=== PATIENT | female | born 1980 | race African-American/Black ===

== ENCOUNTER 2019-08-30 18:54 | Inpatient (IN) | payer OTHER ==
[~2019-08-30] VITALS: Ht 160 cm; Wt 110.3 kg
[2019-08-30] MEDS ORDERED: IPRATROPIUM BROMIDE (0.02%) 0.5MG/2.5ML NEB HHN STA (19:07)
[2019-08-30] MEDS ORDERED: ALBUTEROL (0.083%) 2.5MG/3ML NEB HHN STA (19:07)
[2019-08-30] MEDS ORDERED: CLONIDINE 0.2MG TABLET PO ONE (20:00)
[2019-08-30] MEDS ORDERED: SODIUM CHLORIDE 0.9% 500 ML IV ONE (20:00)
[2019-08-30 20:11] LABS: BASOPHILS % 0.5 % (0.0-2.0); EOSINOPHILS % 3.3 % (0.0-5.0); HEMATOCRIT. 34.6 % (36.0-48.0); HEMOGLOBIN. 10.4 g/dL (12.0-16.0); LYMPHOCYTES % 19.6 % (20.0-50.0); MEAN CORPUSCULAR HEMOGLOBIN 18.7 pg (28.0-32.0); MEAN CORPUSCULAR VOLUME 62.6 fL (81.0-99.0); MONOCYTES % 10.2 % (2.0-8.0); NEUTROPHILS % 66.4 % (40.0-76.0); PLATELET 339 x1000/uL (130-400); RED BLOOD CELL COUNT 5.53 mill/uL (4.2-5.4); RED CELL DISTRIBUTION WIDTH 18.7 % (11.6-14.6)
[2019-08-30 20:15] LABS: CHLORIDE 112 mEq/L (98-107)
[2019-08-30 20:48] LABS: PLATELET ESTIMATE NORMAL
[2019-08-30] MEDS ORDERED: HYDRALAZINE 20MG/ML VIAL IV ONE (21:00)
[2019-08-30 21:29] LABS: HCG SCREEN NEGATIVE
[2019-08-30 21:46] LABS: BG BASE EXCESS -5.7 mmol/L (-2.0-2.0); BG BILEVEL POS AIRWAY PRESSURE 15/5; BG DEOXYHEMOGLOBIN 0.7 % (0.0-5.0); BG FRACTION INSPIRED OXYGEN 40; BG HCO3 ACT 17.8 mmol/L (22.0-26.0); BG METHEMOGLOBIN 0.3 % (0.0-1.5); BG OXYGEN SATURATION 99.3 % (92.0-98.5); BG PCO2 28.5 mmHg (35.0-45.0); BG PH 7.414 (7.350-7.450); BG SAMPLE SITE RIGHT RADIAL; BG TOTAL HEMOGLOBIN 10.6 g/dL (12.0-18.0); BG VENT MODE MASK - BIPAP
[2019-08-30 23:00] VITALS: BP 135/97
[2019-08-30] MEDS ORDERED: ACETAMINOPHEN 325MG TABLET PO PRN (23:45)
[2019-08-30] MEDS ORDERED: ALBU90AE IH (23:58)
[2019-08-31] VITALS (12 sets, daily range): BP systolic 111–149; BP diastolic 72–94
[2019-08-31] MEDS: METHYLPREDNISOLONE SOD SUCC 40 MG/ML VIAL IV SCH ×4 (00:50→17:22)
[2019-08-31] MEDS: DEXT 5%/0.45% NACL 1000ML 1,000 ML IV SCH ×3 (00:51→17:22)
[2019-08-31] MEDS: CLONIDINE 0.1MG TABLET PO PRN (00:51)
[2019-08-31] MEDS: IPRATROPIUM/ALBUTEROL 0.5-3(2.5)MG/3ML NEB HHN SCH ×6 (01:37→21:44)
[2019-08-31] MEDS: LEVOFLOXACIN 500MG PREMIX 100 ML IV SCH (02:23)
[2019-08-31 06:54] LABS: CHLORIDE 111 mEq/L (98-107)
[2019-08-31 06:55] LABS: HEMOGLOBIN. 9.8 g/dL (12.0-16.0); MEAN CORPUSCULAR VOLUME 61.9 fL (81.0-99.0); MEAN PLATELET VOLUME 9.3 fl (7.4-10.4); PLATELET 318 x1000/uL (130-400); RED BLOOD CELL COUNT 5.17 mill/uL (4.2-5.4); RED CELL DISTRIBUTION WIDTH 18.7 % (11.6-14.6)
[2019-08-31] MEDS ORDERED: PANTOPRAZOLE SODIUM 40 MG/VIAL IV SCH (09:00)
[2019-08-31] MEDS ORDERED: ENOXAPARIN 40MG/0.4ML SYR SUBCUT SCH (09:00)
[2019-08-31] MEDS: ENOXAPARIN 30MG/0.3ML SYR SUBCUT SCH ×2 (09:41→20:47)
[2019-08-31 10:53] LABS: PLATELET ESTIMATE NORMAL
[2019-08-31 12:13] LABS: BG BASE EXCESS -4.1 mmol/L (-2.0-2.0); BG CARBOXYHEMOGLOBIN 0.3 % (0.5-1.5); BG DEOXYHEMOGLOBIN 4.6 % (0.0-5.0); BG FRACTION INSPIRED OXYGEN 21; BG HCO3 ACT 19.3 mmol/L (22.0-26.0); BG METHEMOGLOBIN 0.3 % (0.0-1.5); BG OXYGEN SATURATION 95.4 % (92.0-98.5); BG OXYHEMOGLOBIN 94.8 % (94.0-97.0); BG PCO2 29.9 mmHg (35.0-45.0); BG PH 7.427 (7.350-7.450); BG PO2 71.8 mmHg (75.0-100.0); BG SAMPLE SITE LEFT BRACHIAL; BG VENT MODE ROOM AIR
[2019-08-31 12:21] LABS: PROTHROMBIN TIME 10.3 sec (9.6-11.0)
[2019-08-31] MEDS: LORATADINE 10MG TABLET PO SCH (12:24)
[2019-08-31] MEDS ORDERED: DIPHENHYDRAMINE 50MG/ML VIAL IV PRN (15:15)
[2019-08-31] MEDS ORDERED: LORAZEPAM 2MG/ML CPJ IV PRN (15:15)
[2019-08-31] MEDS ORDERED: LACTULOSE 20G/30ML UDC PO PRN (15:15)
[2019-08-31] MEDS ORDERED: HYDROCODONE/ACETAMINOPHEN 5/325MG TABLET PO PRN (15:15)
[2019-08-31] MEDS ORDERED: ONDANSETRON HCL 4MG/2ML INJ IV PRN (15:15)
[2019-08-31] MEDS ORDERED: MONTELUKAST SODIUM 10MG TABLET PO SCH (17:00)
[2019-08-31] MEDS ORDERED: FAMOTIDINE 20MG/2ML VIAL IV SCH (21:00)
[2019-08-31 21:22] LABS: CLARITY URINE CLEAR (CLEAR); COLOR URINE YELLOW (YELLOW); KETONES URINE NEGATIVE (NEGATIVE); LEUKOCYTE ESTERASE URINE NEGATIVE (NEGATIVE); NITRITE URINE NEGATIVE (NEGATIVE); OCCULT BLOOD URINE NEGATIVE (NEGATIVE); PH URINE 5.5 (4.5-8.0); PROTEIN URINE NEGATIVE (NEGATIVE); SPECIFIC GRAVITY URINE 1.005 (1.005-1.030); UROBILINOGEN URINE 0.2 E.U./dL (0.2-1.0)
[2019-08-31 21:43] LABS: METHADONE URINE SCREEN NEGATIVE (NEGATIVE); OPIATES URINE SCREEN NEGATIVE (NEGATIVE)
[2019-08-31 21:44] LABS: *AMPHETAMINES SCREEN URINE NEGATIVE (NEGATIVE); *BARBITURATES SCREEN URINE NEGATIVE (NEGATIVE); *BENZODIAZEPINES SCREEN URINE NEGATIVE (NEGATIVE); *COCAINE SCREEN URINE NEGATIVE (NEGATIVE); CANNABINOID URINE SCREEN NEGATIVE (NEGATIVE); PHENCYCLIDINE URINE SCREEN NEGATIVE (NEGATIVE)
[2019-09-01] VITALS (9 sets, daily range): BP systolic 142–160; BP diastolic 86–98
[2019-09-01] MEDS: METHYLPREDNISOLONE SOD SUCC 40 MG/ML VIAL IV SCH (00:03)
[2019-09-01] MEDS: DEXT 5%/0.45% NACL 1000ML 1,000 ML IV SCH (00:03)
[2019-09-01] MEDS: IPRATROPIUM/ALBUTEROL 0.5-3(2.5)MG/3ML NEB HHN SCH ×4 (01:37→12:53)
[2019-09-01] MEDS: LEVOFLOXACIN 500MG PREMIX 100 ML IV SCH (02:46)
[2019-09-01 08:03] LABS: BASOPHILS % 0.1 % (0.0-2.0); HEMATOCRIT. 33.7 % (36.0-48.0); HEMOGLOBIN. 10.2 g/dL (12.0-16.0); LYMPHOCYTES % 8.5 % (20.0-50.0); MEAN CORPUSCULAR HEMOGLOBIN 18.9 pg (28.0-32.0); MEAN PLATELET VOLUME 10.1 fl (7.4-10.4); MONOCYTES % 4.2 % (2.0-8.0); NEUTROPHILS % 87.2 % (40.0-76.0); PLATELET 387 x1000/uL (130-400); RED BLOOD CELL COUNT 5.43 mill/uL (4.2-5.4); RED CELL DISTRIBUTION WIDTH 19.4 % (11.6-14.6)
[2019-09-01 08:26] LABS: CHLORIDE 108 mEq/L (98-107)
[2019-09-01] MEDS ORDERED: DILTIAZEM HCL 30MG TABLET PO NR (08:45)
[2019-09-01] MEDS ORDERED: PREDNISONE 20MG TABLET PO SCH (09:00)
[2019-09-01] MEDS ORDERED: FAMOTIDINE 20MG TABLET PO SCH (09:00)
[2019-09-01] MEDS: LORATADINE 10MG TABLET PO SCH (09:00)
[2019-09-01] MEDS: ENOXAPARIN 30MG/0.3ML SYR SUBCUT SCH (09:03)
[2019-09-01] MEDS: CLONIDINE 0.1MG TABLET PO PRN (12:25)
[2019-09-01] MEDS ORDERED: DILTIAZEM HCL 5MG/ML 5ML VIAL IV NR (13:30)
[2019-09-01] MEDS ORDERED: DILTIAZEM HCL 30MG TABLET PO SCH (14:00)
[2019-09-02] MEDS ORDERED: LEVOFLOXACIN 500MG TABLET PO SCH (11:00)
== END 2019-09-01 14:22 | disposition home or self-care (01) | DRG 133 ==
LOC: ER 19:45 → 3WST 20:54 → EDBEDREQTM 20:57 → EDBEDREQ 20:57 → ENRESERV 21:43
PROVIDERS: ADMIT Internal Medicine; ATTEND Internal Medicine
PROC: 5A09357 Assistance with Respiratory Ventilation, Less than 24 Consecutive Hours, Continuous Positive Airway Pressure (ICD-10-PCS; principal; 2019-08-30)
DX: J96.00 Acute respiratory failure, unspecified whether with hypoxia or hypercapnia (principal); J45.901 Unspecified asthma with (acute) exacerbation; E86.0 Dehydration; I10 Essential (primary) hypertension; E66.9 Obesity, unspecified; D64.9 Anemia, unspecified; R73.9 Hyperglycemia, unspecified; Z90.5 Acquired absence of kidney; Z87.442 Personal history of urinary calculi; Z79.899 Other long term (current) drug therapy; Z68.41 Body mass index [BMI] 40.0-44.9, adult; J06.9 Acute upper respiratory infection, unspecified
CPT/HCPCS: 36415; 36600; 71045; 76770; 80048; 80053; 80305; 81003; 82375; 82805; 83036; 83880; 84436; 84443; 84484; 84703; 85025; 87070; 87804; 93005; 93306; 93970; 96360; 96361; 99285; J0360; J1650; J1956; J2920; J3490; J7040; J7512; J7611; J7620

== ENCOUNTER 2022-10-20 01:55 | Emergency (ER) | payer OTHER ==
[~2022-10-20] VITALS: Ht 175.3 cm; Wt 125.0 kg
[~2022-10-20 01:55] MED LIST: ALBU90AE IH
[2022-10-20] MEDS ORDERED: MAGNESIUM 2 G PREMIX 50 ML IV STA (02:43)
[2022-10-20] MEDS ORDERED: IPRATROPIUM BROMIDE (0.02%) 0.5MG/2.5ML NEB HHN STA (02:43)
[2022-10-20] MEDS ORDERED: ALBUTEROL (0.083%) 2.5MG/3ML NEB HHN STA (02:43)
[2022-10-20] MEDS ORDERED: METHYLPREDNISOLONE SOD SUCC 125 MG/2 ML VIAL IV STA (02:43)
[2022-10-20] MEDS ORDERED: ALBU6.7H3 INH (06:00)
[2022-10-20] MEDS ORDERED: PRED10TA MT (06:00)
[2022-10-20] MEDS ORDERED: ALBU05 NEB (06:00)
[2022-10-20 07:00] VITALS: BP 147/75
== END 2022-10-20 07:07 | disposition home or self-care (01) ==
LOC: ER 01:55
DX: J45.901 Unspecified asthma with (acute) exacerbation (principal); R03.0 Elevated blood-pressure reading, without diagnosis of hypertension; Z79.51 Long term (current) use of inhaled steroids
CPT/HCPCS: 71045; 94644; 96365; 96366; 96375; 99285; J2930; J3475; Z7610

== ENCOUNTER 2022-11-24 22:04 | Inpatient (IN) | payer OTHER ==
[~2022-11-24] VITALS: Ht 160 cm; Wt 109.8 kg
[~2022-11-24 22:04] MED LIST changes: +ALBU05 NEB; +ALBU6.7H3 INH; +PRED10TA MT
[2022-11-24] MEDS ORDERED: IPRATROPIUM/ALBUTEROL 0.5-3(2.5)MG/3ML NEB HHN ONE (22:45)
[2022-11-24] MEDS ORDERED: DEXAMETHASONE 10 MG/ML VIAL IV ONE (22:45)
[2022-11-24 23:54] LABS: BASOPHILS % 0.5 % (0.0-2.0); HEMATOCRIT. 35.5 % (36.0-48.0); HEMOGLOBIN. 10.5 g/dL (12.0-16.0); LYMPHOCYTES % 12.6 % (20.0-50.0); MEAN CORPUSCULAR HEMOGLOBIN 17.9 pg (28.0-32.0); MEAN CORPUSCULAR VOLUME 60.9 fL (81.0-99.0); MEAN PLATELET VOLUME 8.9 fl (7.4-10.4); MONOCYTES % 5.2 % (2.0-8.0); NEUTROPHILS % 74.7 % (40.0-76.0); PLATELET 372 x1000/uL (130-400); RED BLOOD CELL COUNT 5.84 mill/uL (4.2-5.4); RED CELL DISTRIBUTION WIDTH 17.7 % (11.6-14.6)
[2022-11-25 00:31] LABS: BG BASE EXCESS -3.5 mmol/L (-2.0-2.0); BG CARBOXYHEMOGLOBIN 0.3 % (0.5-1.5); BG DEOXYHEMOGLOBIN 0.4 % (0.0-5.0); BG FRACTION INSPIRED OXYGEN 50; BG HCO3 ACT 21.9 mmol/L (22.0-26.0); BG METHEMOGLOBIN 0.4 % (0.0-1.5); BG OXYGEN SATURATION 99.6 % (92.0-98.5); BG OXYHEMOGLOBIN 98.9 % (94.0-97.0); BG PCO2 40.5 mmHg (35.0-45.0); BG PO2 266.1 mmHg (75.0-100.0); BG SAMPLE SITE RIGHT RADIAL; BG TOTAL HEMOGLOBIN 11.7 g/dL (12.0-18.0); BG VENT MODE MASK - BIPAP
[2022-11-25 00:35] LABS: CHLORIDE 109 mEq/L (98-107)
[2022-11-25] MEDS ORDERED: IPRATROPIUM/ALBUTEROL 0.5-3(2.5)MG/3ML NEB HHN PRN (01:15)
[2022-11-25] MEDS ORDERED: ONDANSETRON HCL 4MG/2ML INJ IV PRN (01:15)
[2022-11-25] MEDS ORDERED: ACETAMINOPHEN 325MG TABLET PO PRN ×2 (01:15)
[2022-11-25] MEDS ORDERED: IPRATROPIUM/ALBUTEROL 0.5-3(2.5)MG/3ML NEB HHN SCH (01:15)
[2022-11-25] MEDS ORDERED: GUAIFENESIN 200MG/10ML SUGAR FREE UDC PO PRN (01:15)
[2022-11-25] MEDS ORDERED: MAGNESIUM/ALUMINUM HYDROXIDE/SIMETHICONE 30ML UDC PO PRN (01:15)
[2022-11-25] MEDS ORDERED: CLONIDINE 0.1MG TABLET PO PRN (01:15)
[2022-11-25] MEDS ORDERED: DIPHENHYDRAMINE 50MG/ML VIAL IV PRN (01:15)
[2022-11-25] MEDS ORDERED: LORAZEPAM 0.5MG TABLET PO PRN (01:15)
[2022-11-25] MEDS ORDERED: ZOLPIDEM TARTRATE 5MG TABLET PO PRN (01:15)
[2022-11-25] MEDS ORDERED: IPRATROPIUM BROMIDE (0.02%) 0.5MG/2.5ML NEB HHN PRN (01:45)
[2022-11-25] MEDS ORDERED: ALBUTEROL (0.083%) 2.5MG/3ML NEB HHN PRN (01:45)
[2022-11-25] MEDS: ALBUTEROL (0.083%) 2.5MG/3ML NEB HHN SCH ×4 (04:22→21:10)
[2022-11-25] MEDS: IPRATROPIUM BROMIDE (0.02%) 0.5MG/2.5ML NEB HHN SCH ×4 (04:22→21:10)
[2022-11-25 05:29] LABS: PLATELET ESTIMATE NORMAL
[2022-11-25] MEDS: SODIUM CHLORIDE 0.9% INJ 3ML FLUSH IVF SCH ×3 (06:20→20:56)
[2022-11-25 09:00] VITALS: BP 150/81
[2022-11-25] MEDS ORDERED: ENOXAPARIN 40MG/0.4ML SYR SUBCUT SCH (09:00)
[2022-11-25] MEDS: OMEPRAZOLE 20MG CAPSULE EXTENDED RELEASE PO SCH ×2 (09:41→20:56)
[2022-11-25] MEDS: METHYLPREDNISOLONE SOD SUCC 125 MG/2 ML VIAL IV SCH ×3 (09:44→20:56)
[2022-11-25 12:00] VITALS: BP 161/93
[2022-11-25 13:35] VITALS: BP 161/93
[2022-11-25] MEDS ORDERED: FLUT1DIS3 INH (14:46)
[2022-11-25 16:00] VITALS: BP 146/81
[2022-11-25 20:00] VITALS: BP 133/87
[2022-11-25] MEDS: ENOXAPARIN 30MG/0.3ML SYR SUBCUT SCH (20:56)
[2022-11-26] VITALS: BP 114/66
[2022-11-26] MEDS: IPRATROPIUM BROMIDE (0.02%) 0.5MG/2.5ML NEB HHN SCH ×2 (03:05→08:56)
[2022-11-26] MEDS: ALBUTEROL (0.083%) 2.5MG/3ML NEB HHN SCH ×3 (03:05→13:45)
[2022-11-26 04:00] VITALS: BP 145/84
[2022-11-26] MEDS: SODIUM CHLORIDE 0.9% INJ 3ML FLUSH IVF SCH ×2 (05:44→14:39)
[2022-11-26] MEDS: METHYLPREDNISOLONE SOD SUCC 125 MG/2 ML VIAL IV SCH ×2 (05:44→14:39)
[2022-11-26] MEDS: OMEPRAZOLE 20MG CAPSULE EXTENDED RELEASE PO SCH (05:44)
[2022-11-26 08:00] VITALS: BP 132/78
[2022-11-26] MEDS: ENOXAPARIN 30MG/0.3ML SYR SUBCUT SCH (09:29)
[2022-11-26] MEDS ORDERED: LEVOFLOXACIN 250MG TABLET PO SCH (11:00)
[2022-11-26 12:00] VITALS: BP 127/64
[2022-11-26 16:00] VITALS: BP 121/71
[2022-11-26 16:10] LABS: BASOPHILS % 0.1 % (0.0-2.0); HEMATOCRIT. 34.7 % (36.0-48.0); HEMOGLOBIN. 10.4 g/dL (12.0-16.0); LYMPHOCYTES % 6.2 % (20.0-50.0); MEAN CORPUSCULAR HEMOGLOBIN 18.5 pg (28.0-32.0); MEAN CORPUSCULAR VOLUME 61.6 fL (81.0-99.0); MEAN PLATELET VOLUME 9.2 fl (7.4-10.4); MONOCYTES % 5.7 % (2.0-8.0); PLATELET 451 x1000/uL (130-400); RED BLOOD CELL COUNT 5.64 mill/uL (4.2-5.4); RED CELL DISTRIBUTION WIDTH 17.8 % (11.6-14.6)
[2022-11-26 16:25] LABS: CHLORIDE 109 mEq/L (98-107)
[2022-11-26 19:28] VITALS: BP 121/71
== END 2022-11-26 19:57 | disposition home or self-care (01) | DRG 133 ==
LOC: ER 22:04 → MICUSO 11-25 00:01 → EDBEDREQSVC 11-25 03:44 → 7WST 11-25 09:52
PROVIDERS: ADMIT Internal Medicine; ATTEND Internal Medicine
PROC: 5A09357 Assistance with Respiratory Ventilation, Less than 24 Consecutive Hours, Continuous Positive Airway Pressure (ICD-10-PCS; principal; 2022-11-24)
DX: J96.00 Acute respiratory failure, unspecified whether with hypoxia or hypercapnia (principal); J45.901 Unspecified asthma with (acute) exacerbation; R65.10 Systemic inflammatory response syndrome (SIRS) of non-infectious origin without acute organ dysfunction; E66.01 Morbid (severe) obesity due to excess calories; D72.829 Elevated white blood cell count, unspecified; D64.9 Anemia, unspecified; Z20.822 Contact with and (suspected) exposure to COVID-19; Z87.442 Personal history of urinary calculi; Z90.5 Acquired absence of kidney; Z79.899 Other long term (current) drug therapy; Z68.41 Body mass index [BMI] 40.0-44.9, adult
CPT/HCPCS: 36415; 36600; 71045; 80048; 80053; 82375; 82805; 83036; 85025; 87426; 87804; 93005; 94640; 94660; 99291; C9803; J1100; J1650; J2930